=== PATIENT | female | born 1965 ===

== ENCOUNTER 2017-11-21 11:14 | Inpatient (IN) | payer BC ==
[2017-11-21 11:35] VITALS: BMI 25.4
[2017-11-21] MEDS ORDERED: Iodixanol 320 MG/ML 100 ML BOTTLE IV ONE ×2 (11:35→14:50)
[2017-11-21 11:43] LABS: EOS % 0.8 % (0.0-4.0); HEMOGLOBIN 13.6 g/dL (11.0-16.0); LYMPH # 1.5 K/uL (1.0-4.3); LYMPH % 36.5 % (20.0-40.0); MEAN CELL VOLUME 85.8 fL (81.0-99.0); MEAN CORPUSCULAR HEMOGLOBIN 29.5 pg (27.0-31.0); MEAN CORPUSCULAR HGB CONC 34.3 g/dL (33.0-37.0); MONO # 0.3 K/uL (0.0-0.8); MONO % 7.9 % (0.0-10.0); NEUT # 2.2 K/uL (1.8-7.0); NEUT % 53.8 % (50.0-75.0); NRBC % 0.1 % (0.0-2.0); RBC 4.61 Mil/uL (3.80-5.20); RED CELL DISTRIBUTION WIDTH 13.4 % (11.5-14.5); WHITE BLOOD COUNT 4.1 K/uL (4.8-10.8)
--- NOTE | 2017-11-21 11:53 | CT ---
PROCEDURE: CT HEAD WITHOUT CONTRAST. HISTORY: Code Stroke COMPARISON: None available. TECHNIQUE: Axial computed tomography images were obtained through the head/brain without intravenous contrast. Radiation dose: Total exam DLP = 1178.95 mGy-cm. This CT exam was performed using one or more of the following dose reduction techniques: Automated exposure control, adjustment of the mA and/or kV according to patient size, and/or use of iterative reconstruction technique. FINDINGS: HEMORRHAGE: No acute parenchymal, subarachnoid nor extra-axial hemorrhage. BRAIN: No evidence of large acute infarct. There appears mild chronic periventricular white matter and scattered subcortical ischemic changes. . Note that the possibility of a small hyperacute infarct cannot be excluded. No obvious parenchymal nor extra-axial mass or collection seen on this noncontrast study. Mild central volume loss evidenced by slight disproportionate enlargement of the ventricles compared the sulci. VENTRICLES: No obstructive hydrocephalus despite on slight disproportionate enlargement of the ventricles compared sulci. . CALVARIUM: Calvarium unremarkable. PARANASAL SINUSES: Visualized paranasal sinuses are well-developed and currently well-aerated. MASTOID AIR CELLS: Unremarkable as visualized. No inflammatory changes. OTHER FINDINGS: None. IMPRESSION: No acute intracranial hemorrhage. Mild periventricular and scattered subcortical white matter ischemic changes. Note that the possibility of a small acute infarct not excluded. Findings discussed with Dr. Burleson 11:50 a.m. with written down and read back verification Mild central volume loss.
[2017-11-21 11:54] LABS: INR 1.1; PROTHROMBIN TIME 12.3 SECONDS (9.7-12.2)
--- NOTE | 2017-11-21 12:14 | C.PDOC ---
History Of Present Illness 51 y/o female with history of Seizures brought to ED by EMS after being found confused. Pt recalls waiting for the bus to arrive to a clients home at 10. When it arrived they noted that the pt was confused and not responding appropriately. Pt feels unclear about the situation but denies having a seizure. Does recall feeling head "pressure" to the top of her head. Notes the symptoms improved on her way to ER. Denies h/o headache. Reports last seizure 4 years ago and is compliant with her Keppra. Now, pt notes symtpoms resolved though still feels some pressure on her head. Patient denies head trauma, dizziness, weakness, visual changes, chest pain, sob or any other complaints at this time. Time Seen by Provider: 11/21/17 11:25 Chief Complaint (Nursing): Altered Mental Status History Per: Patient, EMS History/Exam Limitations: None Onset/Duration Of Symptoms: Hrs Current Symptoms Are (Timing): Better Usual Baseline: Alert Oriented Past Medical History Reviewed: Historical Data, Nursing Documentation, Vital Signs Vital Signs: Last Vital Signs Temp 97.9 F 11/21/17 17:44 Pulse 78 11/21/17 17:44 Resp 18 11/21/17 17:44 BP 135/70 11/21/17 17:44 Pulse Ox 100 11/21/17 18:01 - Medical History PMH: Seizures Surgical History: No Surg Hx - [facility] Procedures INJECT/INFUSE ELECTROLYT (02/17/15) Family History: States: No Known Family Hx - Social History Hx Alcohol Use: No Hx Substance Use: No - Immunization History Hx Tetanus Toxoid Vaccination: No Hx Influenza Vaccination: No Hx Pneumococcal Vaccination: No Review Of Systems Constitutional: Negative for: Fever, Chills Eyes: Negative for: Vision Change Gastrointestinal: Negative for: Nausea, Vomiting Skin: Negative for: Rash Neurological: Positive for: Headache (pressure). Negative for: Weakness, Numbness, Dizziness Physical Exam - Physical Exam Appears: Non-toxic, No Acute Distress Skin: Warm, Dry, No Rash Head: Atraumatic, Normacephalic Eye(s): bilateral: Normal Inspection, EOMI Nose: Normal Oral Mucosa: Moist Neck: Normal ROM, Supple Chest: Symmetrical Cardiovascular: Rhythm Regular Respiratory: Normal Breath Sounds, No Rales, No Rhonchi, No Wheezing Gastrointestinal/Abdominal: Soft, No Tenderness, No Guarding, No Rebound Extremity: Normal ROM, Capillary Refill (<2 seconds) Neurological/Psych: Oriented x3, Normal Speech, Normal Cognition, Normal Cranial Nerves, Normal Motor, Normal Sensation ED Course And Treatment - Laboratory Results Result Diagrams: 11/21/17 11:38 11/21/17 11:38 ECG: Interpreted By Me, Viewed By Me ECG Rhythm: Sinus Rhythm, Nonspecific Changes Rate From EC (BPM) O2 Sat by Pulse Oximetry: 100 (RA) Pulse Ox Interpretation: Normal - CT Scan/US CT head Other Rad Studies (CT/US): Read By Radiologist, Radiology Report Reviewed CT/US Interpretation: PROCEDURE: CT HEAD WITHOUT CONTRAST. HISTORY: Code Stroke. COMPARISON: None available. TECHNIQUE: Axial computed tomography images were obtained through the head/brain without intravenous contrast. Radiation dose: Total exam DLP = 1178.95 mGy-cm. This CT exam was performed using one or more of the following dose reduction techniques: Automated exposure control, adjustment of the mA and/or kV according to patient size, and/ or use of iterative reconstruction technique. FINDINGS: HEMORRHAGE: No acute parenchymal, subarachnoid nor extra-axial hemorrhage. BRAIN: No evidence of large acute infarct. There appears mild chronic periventricular white matter and scattered subcortical ischemic changes. . Note that the possibility of a small hyperacute infarct cannot be excluded. No obvious parenchymal nor extra- axial mass or collection seen on this noncontrast study. Mild central volume loss evidenced by slight disproportionate enlargement of the ventricles compared the sulci. VENTRICLES: No obstructive hydrocephalus despite on slight disproportionate enlargement of the ventricles compared sulci. . CALVARIUM: Calvarium unremarkable. PARANASAL SINUSES: Visualized paranasal sinuses are well-developed and currently well-aerated. MASTOID AIR CELLS: Unremarkable as visualized. No inflammatory changes. OTHER FINDINGS: None. IMPRESSION: No acute intracranial hemorrhage. Mild periventricular and scattered subcortical white matter ischemic changes. Note that the possibility of a small acute infarct not excluded. Findings discussed with Dr. Burleson 11:50 a.m. with written down and read back verification. Mild central volume loss. Progress Note: Pt was evlauated right away. Case discussed with Dr Burleson, agreed upon plan and treatment. Case discussed with Dr. Ireland who instructs aspirin, CTA, and MRI. CAse discussed with Dr. Nichols agreed upon admission for TIA Critical Care Time - Critical Care Note Total Time (in mins): 60 (stroke alert) Documented critical care: time excludes all time spent performing seperately billable procedures. NIHSS Stroke Scale - Date/Time Evaluation Performed Date Performed: 11/21/17 Time Performed: 11:30 When Was NIHSS Performed: Baseline - How Severe is the Stoke Level of Consciousness: 0=Alert LOC to Questions: 0=Both comments correct LOC to commands: 0=Obeys both correctly Best Gaze: 0=Normal Visual: 0=No visual loss Facial: 0=Normal Motor Arm - Left: 0=No drift Motor Arm - Right: 0=No drift Motor Leg - Left: 0=No drift Motor Leg - Right: 0=No drift Limb Ataxia: 0=Absent Sensory: 0=Normal Best Language: 0=No aphasia Dysarthia: 0=Normal articulation Extinction & Inattention (Neglect): 0=Normal, no object Score: 0 Severity Of Stroke: 0= No Stroke Disposition - Disposition Disposition: HOSPITALIZED Disposition Time: 12:30 Condition: STABLE - Clinical Impression Clinical Impression: Transient ischemic attack - PA / MEAT HOSTESS / Resident Statement MD/DO has reviewed & agrees with the documentation as recorded. - Scribe Statement The provider has reviewed the documentation as recorded by the Leslie Garcia All medical record entries made by the Leslie were at my direction and personally dictated by me. I have reviewed the chart and agree that the record accurately reflects my personal performance of the history, physical exam, medical decision making, and the department course for this patient. I have also personally directed, reviewed, and agree with the discharge instructions and disposition.
--- NOTE | 2017-11-21 12:19 | RAD ---
HISTORY: Code Stroke COMPARISON: No prior. FINDINGS: LUNGS: No active pulmonary disease. PLEURA: No significant pleural effusion identified, no pneumothorax apparent. CARDIOVASCULAR: Normal. OSSEOUS STRUCTURES: No significant abnormalities. VISUALIZED UPPER ABDOMEN: Normal. OTHER FINDINGS: None. IMPRESSION: No active disease.
[2017-11-21] MEDS ORDERED: DiphenhydrAMINE 50 mg/ml Inj IVP STA (12:31)
[2017-11-21 12:32] LABS: ALB/GLOB RATIO 1.3 (1.0-2.1); ALBUMIN 4.3 g/dL (3.5-5.0); ALT/SGPT 11 U/L (9-52); AST/SGOT 23 U/L (14-36); BLOOD UREA NITROGEN 13 mg/dL (7-17); CALCIUM 8.5 mg/dl (8.6-10.4); GFR AFRICAN-AMERICAN > 60; GFR NON-AFRICAN AMERICAN > 60; HDL CHOLESTEROL 83 mg/dL (30-70)
[2017-11-21 12:42] LABS: LDL CHOLESTEROL 81 mg/dL (0-129)
--- NOTE | 2017-11-21 12:52 | CP.PCM.HP ---
History of Present Illness - History of Present Illness History of Present Illness: pt felt confused then lost conscious found her self in er feels melissa bp2oo/100 Present on Admission - Present on Admission Any Indicators Present on Admission: No Review of Systems - Review of Systems Systems not reviewed;Unavailable: Acuity of Condition, Unstable Vital Signs - Constitutional Constitutional: As Per HPI - EENT Eyes: As Per HPI Ears: As Per HPI Nose/Mouth/Throat: As Per HPI - Breasts Breasts: As Per HPI - Cardiovascular Cardiovascular: As Per HPI - Respiratory Respiratory: As Per HPI - Gastrointestinal Gastrointestinal: As Per HPI - Genitourinary Genitourinary: As Per HPI - Reproductive: Female Reproductive:Female: As Per HPI - Menstruation Menstruation: As Per HPI - Musculoskeletal Musculoskeletal: As Per HPI - Integumentary Integumentary: As Per HPI - Neurological Additional comments: loss of coscious now alert oriented - Psychiatric Psychiatric: As Per HPI - Endocrine Endocrine: As Per HPI - Hematologic/Lymphatic Hematologic: As Per HPI Past Patient History - Infectious Disease Hx of Infectious Diseases: None - Tetanus Immunizations Tetanus Immunization: Unknown - Past Social History Smoking Status: Never Smoked - CARDIAC Hx Cardiac Disorders: No - PULMONARY Hx Respiratory Disorders: No - NEUROLOGICAL Hx Seizures: Yes - HEENT Hx HEENT Problems: No - RENAL Hx Chronic Kidney Disease: No - ENDOCRINE/METABOLIC Hx Endocrine Disorders: No - HEMATOLOGICAL/ONCOLOGICAL Hx Blood Disorders: No - INTEGUMENTARY Hx Dermatological Problems: No - MUSCULOSKELETAL/RHEUMATOLOGICAL Hx Musculoskeletal Disorders: No - GASTROINTESTINAL Hx Gastrointestinal Disorders: No - GENITOURINARY/GYNECOLOGICAL Hx Genitourinary Disorders: No - PSYCHIATRIC Hx Substance Use: No - SURGICAL HISTORY Hx Section: Yes (x2) Hx Hysterectomy: Yes - ANESTHESIA Hx Anesthesia: Yes Hx Anesthesia Reactions: No Hx Malignant Hyperthermia: No Meds Allergies/Adverse Reactions: Allergies Allergy/AdvReac Type Severity Reaction Status Date / Time FISH Allergy REDNESS Verified 11/21/17 11:58 Physical Exam - Constitutional Appears: Non-toxic, No Acute Distress - Head Exam Head Exam: ATRAUMATIC - Eye Exam Eye Exam: Normal appearance Pupil Exam: NORMAL ACCOMODATION - ENT Exam ENT Exam: Mucous Membranes Moist - Neck Exam Neck exam: Positive for: Normal Inspection - Respiratory Exam Respiratory Exam: Clear to Auscultation Bilateral - Cardiovascular Exam Cardiovascular Exam: REGULAR RHYTHM - GI/Abdominal Exam GI & Abdominal Exam: Normal Bowel Sounds - Rectal Exam Rectal Exam: Deferred - Extremities Exam Extremities exam: Positive for: full ROM - Back Exam Back exam: NORMAL INSPECTION - Neurological Exam Neurological exam: Alert, Oriented x3 - Psychiatric Exam Psychiatric exam: Normal Mood - Skin Skin Exam: Intact, Normal Color Results - Vital Signs Recent Vital Signs: Last Vital Signs Temp 98.2 F 11/21/17 11:47 Pulse 80 11/21/17 12:01 Resp 12 11/21/17 12:01 BP 175/82 H 11/21/17 12:01 Pulse Ox 100 11/21/17 12:23 - Labs Result Diagrams: 11/21/17 11:38 11/21/17 11:38 Labs: Laboratory Results - last 24 hr 11/21/17 11/21/17 11/21/17 11:19 11:38 11:38 WBC 4.1 L RBC 4.61 Hgb 13.6 Hct 39.6 MCV 85.8 MCH 29.5 MCHC 34.3 RDW 13.4 Plt Count 215 MPV 8.0 Neut % (Auto) 53.8 Lymph % (Auto) 36.5 George % (Auto) 7.9 Eos % (Auto) 0.8 Baso % (Auto) 1.0 Neut # (Auto) 2.2 Lymph # (Auto) 1.5 George # (Auto) 0.3 Eos # (Auto) 0.0 Baso # (Auto) 0.0 PT 12.3 H INR 1.1 APTT 37 H Sodium Potassium Chloride Carbon Dioxide Anion Gap BUN Creatinine Est GFR ( Amer) Est GFR (Non-Af Amer) POC Glucose (mg/dL) 128 H Random Glucose Hemoglobin A1c Calcium Total Bilirubin AST ALT Alkaline Phosphatase Troponin I Total Protein Albumin Globulin Albumin/Globulin Ratio Triglycerides Cholesterol LDL Cholesterol Direct HDL Cholesterol Blood Type Antibody Screen 11/21/17 11/21/17 11/21/17 11:38 11:38 11:38 WBC RBC Hgb Hct MCV MCH MCHC RDW Plt Count MPV Neut % (Auto) Lymph % (Auto) George % (Auto) Eos % (Auto) Baso % (Auto) Neut # (Auto) Lymph # (Auto) George # (Auto) Eos # (Auto) Baso # (Auto) PT INR APTT Sodium 142 Potassium 3.6 Chloride 101 Carbon Dioxide 28 Anion Gap 17 BUN 13 Creatinine 0.7 Est GFR ( Amer) > 60 Est GFR (Non-Af Amer) > 60 POC Glucose (mg/dL) Random Glucose 129 H Hemoglobin A1c 5.3 Calcium 8.5 L Total Bilirubin 0.6 AST 23 ALT 11 Alkaline Phosphatase 63 Troponin I < 0.0120 Total Protein 7.6 Albumin 4.3 Globulin 3.3 Albumin/Globulin Ratio 1.3 Triglycerides 47 Cholesterol 193 LDL Cholesterol Direct 81 HDL Cholesterol 83 H Blood Type A POSITIVE Antibody Screen Negative Assessment & Plan - Assessment and Plan (Free Text) Assessment: ac ams tia seizer disorder htn new Plan: admit to tele and as per marty - Date & Time Date: 11/21/17 Time: 12:55
[2017-11-21] MEDS ORDERED: DiphenhydrAMINE 50 mg/ml Inj ONE (13:12)
[2017-11-21 14:48] LABS: CK-MB 0.63 ng/mL (0.0-3.38)
--- NOTE | 2017-11-21 14:48 | MRI ---
PROCEDURE: MRI BRAIN WITHOUT CONTRAST HISTORY: TIA COMPARISON: Comparison made with prior CT scan brain earlier same day TECHNIQUE: Multiplanar, multisequence MR images of the brain were obtained without intravenous contrast enhancement. FINDINGS: HEMORRHAGE: No acute parenchymal, subarachnoid nor extra-axial hemorrhage. No evidence of hemosiderin deposition identified on gradient echo weighted sequence. DWI: No evidence of an acute or early subacute infarction seen on diffusion imaging. BRAIN PARENCHYMA: Multiple varying sized small to medium focal areas of increased T2 signal scattered about the deep and subcortical white matter as well as both manzano radiata/superior basal ganglia both cerebral hemispheres consistent with chronic ischemic changes. Mild diffuse/confluent chronic periventricular white matter ischemic changes also present. Mild generalized volume loss. VENTRICLES: No obstructive hydrocephalus. CRANIUM: No acute calvarial abnormalities. ORBITS: Grossly unremarkable. PARANASAL SINUSES/MASTOIDS: Clear VASCULAR SYSTEM: Visualized major vascular flow voids at skull base patent. OTHER FINDINGS: Orbits and contents unremarkable. IMPRESSION: No evidence of acute intracranial hemorrhage or infarct. Multiple small to medium-sized chronic discrete ischemic mild changes scattered throughout the deep and subcortical white matter both cerebral hemispheres. Mild diffuse/confluent chronic periventricular white matter ischemic changes also noted.
--- NOTE | 2017-11-21 15:23 | CT ---
PROCEDURE: CT Angiography of the Brain. HISTORY: stroke alert COMPARISON: None available. TECHNIQUE: CT angiography of the intracranial and neck arteries was performed. Coronal and sagittal maximum intensity projection reformated images were generated. Contrast Dose: Visipaque 320, 100 cc Radiation dose:Total exam DLP = 522.74 mGy-cm. This CT exam was performed using one or more of the following dose reduction techniques: Automated exposure control, adjustment of the mA and/or kV according to patient size, and/or use of iterative reconstruction technique. FINDINGS: INTERNAL CEREBRAL ARTERIES: Unremarkable. The skull base, petrous, cavernous and supraclinoid segments are bilaterally widely patent. 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 ANTERIOR CEREBRAL ARTERIES: Unremarkable. A1 and A2 segments are widely patent. Smaller distal branches unremarkable, as visualized. MIDDLE CEREBRAL ARTERIES: Unremarkable. M1 and M2 segments are widely patent. Perisylvian branches grossly symmetric. POSTERIOR CIRCULATION: Basilar Artery: Widely patent basilar artery noted. Collateral vessel comprised of left persistent trigeminal artery the joint is distal segment more than 1 cm proximal the origin of the left superior cerebellar artery. Distal Vertebral Arteries: Unremarkable. Posterior Cerebral Arteries: Unremarkable. Posterior Inferior Cerebellar Arteries: Unremarkable. NECK CTA: Common Carotid arteries: The bilateral common carotid appear widely patent from their origins to their bifurcations with no significant stenosis appreciated. No evidence to suggest common carotid artery dissection. Internal Carotid arteries: No significant stenosis is appreciated throughout the cervical internal carotid artery segments bilaterally and there is no evidence of dissection either. External Carotid arteries: Appear unremarkable bilaterally. Vertebral arteries: The bilateral vertebral arteries appear normal in caliber from their origins to their junction with the basilar artery. No significant stenosis or definite pattern of dissection. ANEURYSM/ VASCULAR MALFORMATIONS: None. OTHER FINDINGS: None. IMPRESSION: No significant stenosis and no definite occlusion involving the major arteries of intracranial and cervical arterial circulation. 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
[2017-11-21 15:40] VITALS: RESP 18
--- NOTE | 2017-11-21 17:03 | CP.PCM.CON ---
History of Present Illness - History of Present Illness History of Present Illness: 51 yr old woman with a history of epilepys, who was confused with uncontrolled hypertension before arriving to the ER. In the Er, she was much improved, AAOX3. Patient denies dizziness, weakness, visual changes or any other complaints at this time. meds at home: lamictal 200 mg bid keppra 750 mg bid on exam: normal neurological exam Past Patient History - Infectious Disease Hx of Infectious Diseases: None - Tetanus Immunizations Tetanus Immunization: Unknown - Past Social History Smoking Status: Never Smoked - CARDIAC Hx Cardiac Disorders: No - PULMONARY Hx Respiratory Disorders: No - NEUROLOGICAL Hx Seizures: Yes - HEENT Hx HEENT Problems: No - RENAL Hx Chronic Kidney Disease: No - ENDOCRINE/METABOLIC Hx Endocrine Disorders: No - HEMATOLOGICAL/ONCOLOGICAL Hx Blood Disorders: No - INTEGUMENTARY Hx Dermatological Problems: No - MUSCULOSKELETAL/RHEUMATOLOGICAL Hx Musculoskeletal Disorders: No - GASTROINTESTINAL Hx Gastrointestinal Disorders: No - GENITOURINARY/GYNECOLOGICAL Hx Genitourinary Disorders: No - PSYCHIATRIC Hx Substance Use: No - SURGICAL HISTORY Hx Section: Yes (x2) Hx Hysterectomy: Yes - ANESTHESIA Hx Anesthesia: Yes Hx Anesthesia Reactions: No Hx Malignant Hyperthermia: No Meds Home Medications: Home Medication List Medication Instructions Recorded Confirmed Type Levetiracetam [Keppra] 1,000 mg PO BID 30 Days tablet 11/22/17 Rx Allergies/Adverse Reactions: Allergies Allergy/AdvReac Type Severity Reaction Status Date / Time FISH Allergy REDNESS Verified 11/21/17 11:58 - Medications Medications: Current Medications Amlodipine Besylate (Norvasc) 5 mg PO DAILY [facility] [place] Last Admin: 11/21/17 13:17 Dose: 5 mg Lamotrigine (Lamictal) 200 mg PO BID [facility] Levetiracetam (Keppra) 750 mg PO BID [facility] [place] Results - Vital Signs Recent Vital Signs: Last Vital Signs Temp 98.0 F 11/21/17 13:11 Pulse 76 11/21/17 15:39 Resp 18 11/21/17 15:39 BP 135/76 11/21/17 15:39 Pulse Ox 99 11/21/17 15:39 - Labs Result Diagrams: 11/21/17 11:38 11/21/17 11:38 Labs: Laboratory Results - last 24 hr 11/21/17 11/21/17 11/21/17 11:19 11:38 11:38 WBC 4.1 L RBC 4.61 Hgb 13.6 Hct 39.6 MCV 85.8 MCH 29.5 MCHC 34.3 RDW 13.4 Plt Count 215 MPV 8.0 Neut % (Auto) 53.8 Lymph % (Auto) 36.5 Kenton % (Auto) 7.9 Eos % (Auto) 0.8 Baso % (Auto) 1.0 Neut # (Auto) 2.2 Lymph # (Auto) 1.5 Kenton # (Auto) 0.3 Eos # (Auto) 0.0 Baso # (Auto) 0.0 PT 12.3 H INR 1.1 APTT 37 H Sodium Potassium Chloride Carbon Dioxide Anion Gap BUN Creatinine Est GFR ( Amer) Est GFR (Non-Af Amer) POC Glucose (mg/dL) 128 H Random Glucose Hemoglobin A1c Calcium Total Bilirubin AST ALT Alkaline Phosphatase Total Creatine Kinase CK-MB (Mass) Troponin I Total Protein Albumin Globulin Albumin/Globulin Ratio Triglycerides Cholesterol LDL Cholesterol Direct HDL Cholesterol Blood Type Antibody Screen 11/21/17 11/21/17 11/21/17 11:38 11:38 11:38 WBC RBC Hgb Hct MCV MCH MCHC RDW Plt Count MPV Neut % (Auto) Lymph % (Auto) Kenton % (Auto) Eos % (Auto) Baso % (Auto) Neut # (Auto) Lymph # (Auto) Kenton # (Auto) Eos # (Auto) Baso # (Auto) PT INR APTT Sodium 142 Potassium 3.6 Chloride 101 Carbon Dioxide 28 Anion Gap 17 BUN 13 Creatinine 0.7 Est GFR ( Amer) > 60 Est GFR (Non-Af Amer) > 60 POC Glucose (mg/dL) Random Glucose 129 H Hemoglobin A1c 5.3 Calcium 8.5 L Total Bilirubin 0.6 AST 23 ALT 11 Alkaline Phosphatase 63 Total Creatine Kinase 95 CK-MB (Mass) 0.63 Troponin I < 0.0120 Total Protein 7.6 Albumin 4.3 Globulin 3.3 Albumin/Globulin Ratio 1.3 Triglycerides 47 Cholesterol 193 LDL Cholesterol Direct 81 HDL Cholesterol 83 H Blood Type A POSITIVE Antibody Screen Negative - Imaging and Cardiology MRI - head Status: Image reviewed by me (MRI brain shows chronic ischemic changes no acute stroke ) Assessment & Plan - Assessment and Plan (Free Text) Assessment: MRI brain: shows microangiopathic changes. A/p: 51 yr old woman with epilepys who most likely had repeat spell. Plan: 1. Increase keppra to 1000 mg bid 2. continue lamictal at 200 mg bid 3. MRI brain reviewed and no changes. 4. urine culture to search for infection. Thank you dr. trujillo
[2017-11-21 17:37] LABS: SQUAMOUS EPITHIAL < 1 /hpf (0-5); URINE BACTERIA RARE (<OCC); URINE BILIRUBIN NEGATIVE (NEGATIVE); URINE BLOOD NEGATIVE (NEGATIVE); URINE CLARITY Clear (Clear); URINE COLOR Yellow (YELLOW); URINE GLUCOSE (UA) NORMAL (Normal); URINE LEUKOCYTE ESTERASE NEG Leu/uL (Negative); URINE PROTEIN NEGATIVE (NEGATIVE); URINE UROBILINOGEN NORMAL mg/dL (0.2-1.0)
[2017-11-22 04:53] VITALS: BP 137/75; TEMP 97.6; O2SAT 98
[2017-11-22] MEDS ORDERED: Enoxaparin 30 mg Syringe SC SCH (10:00)
--- NOTE | 2017-11-22 10:19 | CP.PCM.PN ---
Subjective - Date & Time of Evaluation Date of Evaluation: 11/22/17 Time of Evaluation: 10:16 - Subjective Subjective: c/o light headed no seizers no weekness Objective - Vital Signs/Intake and Output Vital Signs (last 24 hours): Temp Pulse Resp BP Pulse Ox 97.6 F 69 18 137/75 98 11/22/17 04:00 11/22/17 04:42 11/22/17 04:00 11/22/17 04:00 11/22/17 04:00 - Medications Medications: Current Medications Amlodipine Besylate (Norvasc) 5 mg PO DAILY [facility] [place] Last Admin: 11/22/17 10:06 Dose: 5 mg Aspirin (Aspirin Chewable) 81 mg PO DAILY [facility] [place] Enoxaparin Sodium (Lovenox) 30 mg SC DAILY [facility] [place] Last Admin: 11/22/17 10:07 Dose: 30 mg Lamotrigine (Lamictal) 200 mg PO BID [facility] [place] Last Admin: 11/22/17 10:06 Dose: 200 mg Levetiracetam (Keppra) 1,000 mg PO BID [facility] [place] Last Admin: 11/22/17 10:06 Dose: 1,000 mg - Labs Labs: 11/21/17 11:38 11/21/17 11:38 PT 12.3 SECONDS (9.7-12.2) H 11/21/17 11:38 INR 1.1 11/21/17 11:38 APTT 37 SECONDS (21-34) H 11/21/17 11:38 - Constitutional Appears: Non-toxic - Head Exam Head Exam: ATRAUMATIC - Eye Exam Eye Exam: Normal appearance Pupil Exam: NORMAL ACCOMODATION - ENT Exam ENT Exam: Mucous Membranes Moist - Neck Exam Neck Exam: Full ROM - Respiratory Exam Respiratory Exam: NORMAL BREATHING PATTERN - Cardiovascular Exam Cardiovascular Exam: REGULAR RHYTHM - GI/Abdominal Exam GI & Abdominal Exam: Soft, Normal Bowel Sounds - Extremities Exam Extremities Exam: Full ROM - Back Exam Back Exam: NORMAL INSPECTION - Neurological Exam Neurological Exam: Alert, Oriented x3, Reflexes Normal - Psychiatric Exam Psychiatric exam: Normal Affect - Skin Skin Exam: Normal Color Assessment and Plan - Assessment and Plan (Free Text) Assessment: possible seizer possible tia improved will d/c later on today if remain fine Plan: may d/c
[2017-11-22 12:17] VITALS: PULSE 71
--- NOTE | 2017-11-22 17:59 | CP.PCM.PN ---
Objective - Vital Signs/Intake and Output Vital Signs (last 24 hours): Temp Pulse Resp BP Pulse Ox 97.6 F 71 18 137/75 98 11/22/17 04:00 11/22/17 12:15 11/22/17 04:00 11/22/17 04:00 11/22/17 04:00 - Labs Labs: 11/21/17 11:38 11/21/17 11:38 PT 12.3 SECONDS (9.7-12.2) H 11/21/17 11:38 INR 1.1 11/21/17 11:38 APTT 37 SECONDS (21-34) H 11/21/17 11:38 Assessment and Plan - Assessment and Plan (Free Text) Assessment: Patient admitted with tingling and discomfort, seen and examined. Alert and orientedx3, no sob seizures or distress. Discussed with DR Nichols, plan to discharge home today. Keppra increased to 1000bid as per neuro. Advised to follow up woth neurologyst in 2 weeks as advised.
--- NOTE | 2017-11-24 16:20 | CARD ---
APPROVED REPORT EKG Measurement Heart [id number] CT 140P32 [id number] <Conclusion> Normal sinus rhythm with sinus arrhythmia Possible Anterior infarct, age undetermined Abnormal ECG
== END 2017-11-22 15:00 | disposition home or self-care (01) | DRG 101 ==
LOC: C.ER 11:14 → C.9E 12:35 → C.6T 16:53
PROVIDERS: ADMIT Internal Medicine; ATTEND Internal Medicine
DX: G40.909 Epilepsy, unspecified, not intractable, without status epilepticus (principal); Z91.013 Allergy to seafood; I10 Essential (primary) hypertension